=== PATIENT | male | born 1970 | race American Indian/Alaskan Native ===

== ENCOUNTER 2017-11-08 00:25 | Emergency (ER) | payer MEDICAID, OTHER ==
[2017-11-08 00:45] VITALS: TEMP 99.2
[2017-11-08] MEDS ORDERED: DiphenhydrAMINE 50 mg/ml Inj IVP ONE (00:51)
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
[2017-11-08] MEDS ORDERED: DiphenhydrAMINE 50 mg/ml Inj ONE (01:05)
--- NOTE | 2017-11-08 05:04 | CT ---
EXAM: CT Neck Without Intravenous Contrast CLINICAL HISTORY: 47 years old, male; Pain; Painful swallowing; Additional info: R/O abscess TECHNIQUE: Axial computed tomography images of the neck without intravenous contrast. All CT scans at this facility use one or more dose reduction techniques, viz.: automated exposure control; ma/kV adjustment per patient size (including targeted exams where dose is matched to indication; i.e. head); or iterative reconstruction technique. COMPARISON: No relevant prior studies available. FINDINGS: Oropharynx: The left peritonsillar soft tissues are mildly prominent compared to the right. Hypopharynx: Unremarkable. Larynx: Unremarkable. Normal epiglottis. Trachea: Unremarkable. Retropharyngeal space: Unremarkable. Submandibular/parotid glands: Unremarkable. Glands are normal in size. Thyroid: Unremarkable. No enlarged or calcified nodules. Bones/joints: No acute fracture. Soft tissues: Unremarkable. Vasculature: No acute findings. Lymph nodes: Unremarkable. No lymphadenopathy. Lung apices: Unremarkable as visualized. IMPRESSION: Mildly prominent left peritonsillar soft tissues. The study is limited by lack of intravenous contrast. Followup with intravenous contrast recommended if there is continued clinical concern for abscess.
[2017-11-08 06:32] VITALS: BP 131/79; PULSE 80; RESP 18; O2SAT 100
== END 2017-11-08 06:00 | disposition home or self-care (01) ==
LOC: ED 00:25
DX: T78.49XA Other allergy, initial encounter (principal); X58.XXXA Exposure to other specified factors, initial encounter; J02.9 Acute pharyngitis, unspecified; E11.9 Type 2 diabetes mellitus without complications
CPT/HCPCS: 70490; 82948; 87070; 87430; 96374; 96375; 99283; J1200; J2930